=== PATIENT | male | born 1985 | race Caucasian/White ===

== ENCOUNTER → 2020-03-02 | Outpatient (CLI) | payer OTHER ==
[~2020-03-02] MED LIST: ACEBUTCAFT PO; CLIN300 PO; CODACE30 PO; CYCL10 PO; Cleocin HCl150 MG PO; Cyclobenzaprine5 MG PO; IBUP800 PO; KETO10 PO; METO10 PO; METPRE4DP PO; NAPR500 PO; Norco 5-325 Ta1 EACH PO; OXYACE5T PO; OXYC5 PO; PROM25 PO; Pepcid40 MG PO; Prednisone20 MG PO; RXCLIN PO; RXCODACET PO; RXTRAM50 PO; Robaxin-750750 MG PO; TOBDEXOPSU OP; TRAM50 PO; Tobrex5 ML RIGHTEYE; Ultram50 MG PO
[2020-03-02 13:46] LABS: BASOPHILS ABSOLUTE AUTO 0.01 K/mm3 (0.00-0.23); BASOPHILS PERCENT AUTO 0 % (0-2); EOSINOPHILS ABSOLUTE AUTO 0.02 K/mm3 (0.00-0.68); EOSINOPHILS PERCENT AUTO 0 % (0-6); Hematocrit 43.9 % (37.0-53.0); Hemoglobin 15.4 g/dL (13.5-17.5); IMMATURE GRAN ABSOLUTE AUTO 0.01 K/mm3 (0.00-0.10); IMMATURE GRAN PERCENT AUTO 0 % (0-1); LYMPHOCYTES ABSOLUTE AUTO 1.27 K/mm3 (0.84-5.20); LYMPHOCYTES PERCENT AUTO 26 % (21-46); MONOCYTES ABSOLUTE AUTO 0.37 K/mm3 (0.16-1.47); MONOCYTES PERCENT AUTO 8 % (4-13); Mean Corpuscular HGB 30.7 pg (26.0-34.0); Mean Corpuscular HGB Conc 35.1 g/dL (31.5-36.5); Mean Corpuscular Volume 88 fL (80-100); Mean Platelet Volume 8.7 fL (9.1-12.4); NEUTROPHILS ABSOLUTE AUTO 3.19 K/mm3 (1.96-9.15); NEUTROPHILS PERCENT AUTO 66 % (41-73); Platelet Count 302 K/mm3 (150-400); RDW Coefficient Variation 12.7 % (11.7-14.2); RDW Standard Deviation 40.1 fL (35.1-46.3); Red Blood Cell Count 5.02 M/mm3 (4.30-5.90); White Blood Cell Count 4.87 K/mm3 (4.00-11.30)
[2020-03-02 13:55] LABS: Alanine Aminotransfer (ALT/SGP 14 U/L (12-78); Albumin, Blood 4.8 g/dL (3.4-5.0); Albumin/Globulin Ratio 1.3 (0.8-1.8); Alk Phos 73 U/L (40-126); Anion Gap 11 mmol/L (6-16); Aspartate Aminotrans (AST/SGOT 16 U/L (12-37); Bilirubin, Total 0.8 mg/dL (0.1-1.0); Blood Urea Nitrogen 13 mg/dL (8-24); CO2, Blood 27 mmol/L (21-32); Calcium, Blood 9.5 mg/dL (8.5-10.1); Chloride, Blood 104 mmol/L (98-108); Creatinine, Blood 0.93 mg/dL (0.60-1.20); Globulin, Blood 3.6 g/dL (2.2-4.0); Glomerular Filtration Rate >60 (60-); Glucose, Blood 98 mg/dL (70-99); Potassium, Blood 4.1 mmol/L (3.5-5.5); Sodium, Blood 142 mmol/L (136-145); Total Protein, Blood 8.4 g/dL (6.4-8.2)
== END | disposition home or self-care (01) ==
LOC: LAB EV 13:42 → LAB SHORT 13:42
PROVIDERS: Emergency Medicine
DX: R19.7 Diarrhea, unspecified (principal); R53.83 Other fatigue; Z20.828 Contact with and (suspected) exposure to other viral communicable diseases
CPT/HCPCS: 80053; 85025; U0003

== ENCOUNTER → 2020-03-03 | Outpatient (CLI) | payer OTHER ==
[2020-03-03 14:49] LABS: Adenovirus F 40/41 Not Detected (NOT DETECT); Astrovirus Not Detected (NOT DETECT); Campylobacter Sp Not Detected (NOT DETECT); Cryptosporidium Not Detected (NOT DETECT); Cyclospora Cayetanensis Not Detected (NOT DETECT); E. Coli O157 Not Detected (NOT DETECT); Entamoeba Histolytica Not Detected (NOT DETECT); Enteroaggregative E. coli-EAEC Not Detected (NOT DETECT); Enteropathogenic E. coli-EPEC Not Detected (NOT DETECT); Enterotoxigenic E. coli-ETEC Not Detected (NOT DETECT); Giardia Lamblia Not Detected (NOT DETECT); Norovirus GI/GII Not Detected (NOT DETECT); Plesiomonas Shigelloides Not Detected (NOT DETECT); Rotavirus A Not Detected (NOT DETECT); Salmonella Sp Not Detected (NOT DETECT); Sapovirus Not Detected (NOT DETECT); Shiga Toxin-prod E. coli-STEC Not Detected (NOT DETECT); Shigella/Enteroin E. coli-EIEC Not Detected (NOT DETECT); Vibrio Cholerae Not Detected (NOT DETECT); Vibrio Sp Not Detected (NOT DETECT); Yersinia Enterocolitica Not Detected (NOT DETECT)
== END | disposition home or self-care (01) ==
LOC: LAB EV 07:34
PROVIDERS: Emergency Medicine
DX: R11.2 Nausea with vomiting, unspecified (principal); R19.7 Diarrhea, unspecified
CPT/HCPCS: 0097U

== ENCOUNTER 2023-01-15 18:27 | Emergency (ER) | payer OTHER ==
[~2023-01-15] VITALS: Ht 188 cm; Wt 74.8 kg
[2023-01-15 18:37] VITALS: BP 128/84
[2023-01-15] MEDS ORDERED: DOXY100 PO (19:51)
== END 2023-01-15 20:16 | disposition home or self-care (01) ==
LOC: ER 18:27
DX: S61.451A Open bite of right hand, initial encounter (principal); W54.0XXA Bitten by dog, initial encounter; Z87.891 Personal history of nicotine dependence
CPT/HCPCS: 12001; 73130; 90471; 90714; 99283-25; A9270

== ENCOUNTER 2023-09-14 21:05 | Inpatient (IN) | payer OTHER ==
[~2023-09-14] VITALS: Ht 188 cm; Wt 72.6 kg
[~2023-09-14 21:05] MED LIST changes: +DOXY100 PO
[2023-09-14 21:30] LABS: BASOPHILS ABSOLUTE AUTO 0.03 K/mm3 (0.00-0.23); BASOPHILS PERCENT AUTO 0 % (0-2); EOSINOPHILS ABSOLUTE AUTO 0.07 K/mm3 (0.00-0.68); EOSINOPHILS PERCENT AUTO 1 % (0-6); Hematocrit 43.1 % (37.0-53.0); IMMATURE GRAN ABSOLUTE AUTO 0.01 K/mm3 (0.00-0.10); IMMATURE GRAN PERCENT AUTO 0 % (0-1); LYMPHOCYTES ABSOLUTE AUTO 1.35 K/mm3 (0.84-5.20); LYMPHOCYTES PERCENT AUTO 17 % (21-46); MONOCYTES ABSOLUTE AUTO 0.53 K/mm3 (0.16-1.47); MONOCYTES PERCENT AUTO 7 % (4-13); Mean Corpuscular HGB 30.5 pg (26.0-34.0); Mean Corpuscular HGB Conc 34.8 g/dL (31.5-36.5); Mean Corpuscular Volume 88 fL (80-100); Mean Platelet Volume 8.5 fL (9.1-12.4); NEUTROPHILS PERCENT AUTO 76 % (41-73); Platelet Count 307 K/mm3 (150-400); RDW Coefficient Variation 12.3 % (11.7-14.2); RDW Standard Deviation 40.1 fL (35.1-46.3); Red Blood Cell Count 4.91 M/mm3 (4.30-5.90); White Blood Cell Count 8.19 K/mm3 (4.00-11.30)
[2023-09-14 21:49] LABS: Albumin, Blood 4.4 g/dL (3.4-5.0); Albumin/Globulin Ratio 1.1 (0.8-1.8); Bilirubin, Total 0.7 mg/dL (0.1-1.0); Bun/Creatinine Ratio 11.9 (12.0-20.0); Calcium, Blood 9.3 mg/dL (8.5-10.1); Creatinine, Blood 0.75 mg/dL (0.60-1.20); Potassium, Blood 3.9 mmol/L (3.5-5.5); Total Protein, Blood 8.4 g/dL (6.4-8.2)
[2023-09-15 03:55] VITALS: BP 135/84
--- NOTE | 2023-09-15 04:00 | NUR ---
ER ADMIT. A/O. STATES NEEDS APPROPRIATELY. ON RA. CHEST TUBE TO R CHEST WALL TO WALL SUCTION AT 20. CHEST TUBE SECURED TO FLOOR WITH TAPE. PT REFUSED SKIN ASSESSMENT. PT ORIENTED TO CALL LT SYSTEM. WILL CONTINUE TO PROVIDE CARE T/O SHIFT. CALL LT IN REACH.
[2023-09-15 07:15] VITALS: BP 109/68
--- NOTE | 2023-09-15 07:56 | NUR ---
SHIFT SUMMARY: ER ADMIT AT 0400. A/O. CHEST TUBE IN PLACE TO RIGHT SIDE OF CHEST WALL, ER NURSE SET WALL SUCTION TO 20. MEDICATED PT WITH 50 MCG FENTANYL IV FOR 9/10 RIGHT SHOULDER PAIN, PT RESTED COMFORTABLY. MEDICATED PT FOR NAUSEA. WITH FAIR RESULTS. PT RESTED OFF AND ON. NO ACUTE CHANGES. WILL CONTINUE TO PROVIDE CARE UNTIL SHIFT REPORT TO ONCOMING NURSE.
--- NOTE | 2023-09-15 12:45 | NUR ---
CHES TUBE DR ROCHA TUNRED UP THE SUCTION FROM 20 MMHG TO 25 MMHG. PT CONTINUES TO HAVE AN AIR LEAK. CARE ONGOING.
--- NOTE | 2023-09-15 15:30 | NUR ---
chest tube pt continues with airleak. dr Rico increased ct pressure to 25 from 20. Pt has tolerated the increase well. No sob or change in pain pattern. care ongoing.
[2023-09-15 17:38] VITALS: BP 105/73
--- NOTE | 2023-09-15 19:30 | NUR ---
TRANSFER REPORT TAKEN FROM [facility] MEDICAL FLOOR RN TO ASSUME CARE OF PT. PT TO TRANSFER FROM ROOM 302 TO SURGICAL FLOOR 215.
[2023-09-15 19:31] VITALS: BP 128/80
--- NOTE | 2023-09-15 20:50 | NUR ---
TRANSFER-UPDATE PT SETTELED INTO ROOM, BELONGINGS IN PLACE. CHEST TUBE TO SUCTION, WNL. PT DENIES SOB, IN STABLE CONDITION. PT REPORTS SOME PAIN NEAR CHEST TUBE SITE, NO ACUTE CHANGE. PT S/O AT BEDSIDE. WHEN PT ARRIVED TO THE ROOM, HE REQUESTED TO USE THE BATHROOM. PT REPORTS THAT HE HAS NOT URINATED IN SEVERAL HOURS WHILE ON MEDICAL FLOOR BECAUSE HE DID NOT WANT TO USE THE URINAL OR BSC. PT OFFERED BSC AND URINAL AGAIN AND HE REFUSED, STATING THAT HE WOULD ONLY USE THE BATHROOM IF HE COULD WALK INTO THE BATHROOM WITH CHEST TUBE CANNISTER. SALES MARKETING COORDINATOR MADE AWARE AND TALKED WITH PT ABOUT THE IMPORTANCE OF KEEPING CHEST TUBE CANNISTER UPRIGHT AT ALL TIMES. CANNISTER IS NOT TAPED TO THE FLOOR PER PT REQUEST SO THAT HE CAN CARRY IT INTO THE BATHROOM. HE STATES HE WILL BE CAREFUL NOT TO KNOCK IT OVER. PT HAS BEEN ABLE TO AMBULATE TO THE BATHROOM WITHOUT ISSUE.
--- NOTE | 2023-09-16 01:14 | NUR ---
PT TRANSFERRED TO SURGICAL 215 FROM [place] [id number] WITH ALL BELONGINGS AND CHART.
[2023-09-16 05:41] VITALS: BP 122/77
[2023-09-16 07:41] VITALS: BP 114/80
[2023-09-16 14:47] VITALS: BP 140/89
--- NOTE | 2023-09-16 19:07 | NUR ---
SHIFT SUMMARY S/P CHEST TUBE R UPPER LATERAL CHEST WALL, A/OX4, VSS, TOLERATING PO, PAIN MANAGED PER EMAR, CHEST TUBE REMAINS CONNECTED TO SUCTION ORDERED WITH IT BEING ADJUSTED UP TO -40 BY MD. PT REPORTS HIGH PITCHED INTERMITTENT SOUNDS COMING FROM IT, VISUAL INSPECTION FOUND NOTHING UNUSUAL WITH THE CHEST TUBE AND PATIENT WAS NOT SOB OR IN ANY DISTRESS AT THE TIME, THIS INFORMATION WAS PASSED ON TO MD. NO ACUTE EVENTS THIS SHIFT, CALL LIGHT IN REACH.
[2023-09-16 20:44] VITALS: BP 133/76
[2023-09-17] VITALS (16 sets, daily range): BP systolic 122–164; BP diastolic 76–117
--- NOTE | 2023-09-17 04:23 | NUR ---
SUMMARY- NO NEW ISSUES. CX TUBE INTACT AND CONNECTED TO SUCTION, PT DENIES SOB. PT DISCOMFORT TX PER MAR WITH RELIEF. PT HAS SLEPT FOR MAJORITY OF SHIFT WITHOUT COMPLAINT. CALL LIGHT IN REACH.
--- NOTE | 2023-09-17 11:35 | NUR ---
PATIENT TO DAY SURGERY AT THIS TIME.
--- NOTE | 2023-09-17 12:06 | NUR ---
09/17/23 1205 Dannie Lima SEE ANESTHESIA AND DR MICHEL NOTES REGARDING PT'S CARE. PROCEDURE DONE IN PACU.
--- NOTE | 2023-09-17 12:53 | NUR ---
PATIENT IS BACK TO ROOM FROM OR. LATERAL CHEST IN PLACE, SECURED WITH GAUZE, TEGEDERM AND TAPE. SX TO -20. TIDALING IS VISIBLE WITH BREATHING. SLIGHT BUBBLING NOISE IN THE AIR LEAK CHAMBER. LUNG SOUNDS ARE CLEAR, SLIGHTLY DIM IN RIGHT LL. VITALS ARE STABLE. FAMILY IN ROOM, CALL LIGHT IN REACH.
--- NOTE | 2023-09-17 16:46 | NUR ---
SHIFT SUMMARY PATIENT TAKEN TO SURGERY TODAY FOR PLACEMENT OF LARGER BORE CHEST TUBE. SX SET TO -20 DRESSING ON RIGHT LATERAL LUNG IS GAUZE WITH TEGADERM AND TAPPE IS C/D/I. PATIENT IS AOX4. USES URINAL INDEPENDENTLY. REPORTS PAIN AND IS MEDICATED PER EMAR. IV IS SALINE LOCKED PATIENT IS TOELRATING PO INTAKE. DENIES SOB, NO CREPITUS NOTED. ON RA SATS 96-97.CALLS APPROPRIATELY.
[2023-09-18 00:35] VITALS: BP 140/86
--- NOTE | 2023-09-18 04:13 | NUR ---
SUMMARY- PT REPORTING INCREASED DISCOMFORT WITH NEW CX TUBE. PT TX PER MAR WITH RELIEF. PT ABLE TO SLEEP SOME WATER SEAL TO WALL SUCTION WORKING WELL. PT DENIES SOB. PT DRESSING IS C/D/I. CALL LIGHT IN REACH.
[2023-09-18 04:34] VITALS: BP 135/95
[2023-09-18 07:21] VITALS: BP 135/81
[2023-09-18 14:39] VITALS: BP 131/83
[2023-09-18 17:10] VITALS: BP 131/83
--- NOTE | 2023-09-18 19:15 | NUR ---
TRANSFER SUMMARY PT A&OX4, VSS/RA, JANETTE PO, VOIDING, STAND PIVOT, PAIN MANAGED, CT IN PLACE. REPORT CALLED TO JAMES VASQUEZ [phone] (NO ONE ANSWERED UNTIL [phone]).
== END 2023-09-18 18:41 | disposition short-term general hospital (02) | DRG 201 ==
LOC: ER 21:05 → MEDS 21:06 → SURS 09-15 10:06 → MEDS 09-15 10:06 → SURS 09-15 19:40
PROVIDERS: Emergency Medicine; ADMIT Surgery
PROC: 0W9930Z Drainage of Right Pleural Cavity with Drainage Device, Percutaneous Approach (ICD-10-PCS; principal; 2023-09-14)
PROC: 0W9930Z Drainage of Right Pleural Cavity with Drainage Device, Percutaneous Approach (ICD-10-PCS; 2023-09-17)
DX: J93.83 Other pneumothorax (principal); F17.290 Nicotine dependence, other tobacco product, uncomplicated; Z71.6 Tobacco abuse counseling; Z28.21 Immunization not carried out because of patient refusal
CPT/HCPCS: 32551; 71045; 71046; 80053; 83880; 84484; 85025; 85379; 93005; 93010; 96374; 96375; 96376; 99285-25; A9270; G0378; J2060; J2250; J2405; J3010